=== PATIENT | female | born 1995 | race Caucasian/White ===

== ENCOUNTER 2017-08-23 15:03 | Emergency (ER) | payer OTHER ==
[~2017-08-23] VITALS: Ht 172.7 cm; Wt 105.0 kg
[2017-08-23 15:04] VITALS: BP 110/81; PULSE 82; RESP 14; TEMP 98.9; O2SAT 99
[2017-08-23] MEDS ORDERED: ADDE20XR PO (16:23)
[2017-08-23] MEDS ORDERED: ONDANSETRON ODT 4 MG TAB PO ONE (16:45)
[2017-08-23] MEDS ORDERED: KETOROLAC TROMETHAMINE 60 MG/2 ML (IM) VIAL IM ONE (16:45)
[2017-08-23] MEDS ORDERED: ZOFR4TAB3 SL (17:19)
[2017-08-23] MEDS ORDERED: AZIT250T3 PO (17:19)
[2017-08-23] MEDS ORDERED: PROM6.256 PO (17:19)
--- NOTE | 2017-08-23 17:19 | PD ---
HPI Chief Complaint: Respiratory Symptoms Time Seen by Provider: 16:36 Travel History International Travel<30 days: No Contact w/Intl Traveler<30days: No Traveled to known affect area: No History of Present Illness HPI This is a 21-year-old female who presents to the emergency department with 5 days of nonproductive cough, rhinorrhea, vomiting and loose stools, constant, moderate severity, worsening. She feels very fatigued and tired. She was seen by her [facility] earlier in the week and told she likely has bronchitis and prescribed azithromycin, prednisone and cough medicine that she didn't fill any of it. Her symptoms are not improving. PFSH Past Medical History ADHD: Yes ?: Not Past Surgical History Other Surgery: Yes Social History Alcohol Use: No Tobacco Use: No Substance Use: No Allergies-Medications (Allergen,Severity, Reaction): Coded Allergies: No Known Allergies (Unverified , 08/23/17) Reported Meds & Prescriptions Reported Meds & Active Scripts Active Reported Adderall Xr 24 HR (Amphetamine/Dextroamphetamine) 20 Mg Cap 20 Mg PO DAILY Once daily in the morning. Review of Systems Except as stated in HPI: all other systems reviewed are Neg Physical Exam Narrative GENERAL:Well appearing, no acute distress SKIN: Focused skin assessment warm and dry. HEAD: Atraumatic. Normocephalic. EYES: Pupils equal and round. No injection or drainage. ENT: Moist mucous membranes. No posterior pharyngeal erythema or exudates. NECK: Trachea midline. CARDIOVASCULAR: Regular rate and rhythm. No murmur appreciated. RESPIRATORY: Clear to auscultation. Breath sounds equal bilaterally. GASTROINTESTINAL: Abdomen soft, non-tender, nondistended. MUSCULOSKELETAL: No obvious deformities. NEUROLOGICAL: Awake and alert. No obvious cranial nerve deficits. Moving all extremities. PSYCHIATRIC: Appropriate mood and affect; insight and judgment normal. Data Data Last Documented VS Vital Signs Date Time Temp Pulse Resp B/P (MAP) Pulse Ox O2 Delivery O2 Flow Rate FiO2 08/23/17 15:04 98.9 82 14 110/81 (91) 99 Orders Orders Influenzae A/B Antigen (08/23/17 16:36) Ketorolac Inj (Toradol Inj) (08/23/17 16:45) Ondansetron Odt (Zofran Odt) (08/23/17 16:45) [facility] Medical Decision Making Medical Screen Exam Complete: Yes Emergency Medical Condition: Yes Interpretation(s) vital signs are reassuring Differential Diagnosis Influenza, bronchitis, pneumonia Narrative Course This is a 21-year-old female who presents to the emergency department with flulike symptoms that been going on for 5 days. She is nontoxic appearing on exam and has normal oxygen saturation with no evidence of pneumonia. Influenza will be obtained. If negative I think it's reasonable to discharge the patient on symptomatic management. Given her duration of symptoms azithromycin will be prescribed if influenza is negative. Diagnosis Primary Impression: Bronchitis Patient Instructions: General Instructions Additional Instructions: If you develop severe chest pain, shortness of breath, sweating, lightheadedness , dizziness or difficulty breathing return to the emergency department immediately. Followup with your primary care physician in 2-3 days if your symptoms are not resolved. Med/Other Pt SpecificInfo: Prescription(s) given Scripts Ondansetron Odt (Zofran Odt) 4 Mg Tab 4 MG SL Q6HR Y for Nausea/Vomiting, #15 TAB 0 Refills Prov: Dalila Lamas MD 08/23/17 Promethazine-Codeine Liq (Promethazine-Codeine Liq) 6.25-10 Mg/5 Ml Syrp 5 ML PO Q6H Y for COUGH AND/OR COLD SYMPTOMS, #60 ML 0 Refills Prov: Dalila Lamas MD 08/23/17 Azithromycin (Azithromycin) 250 Mg Tab 250 MG PO DIRECTED for Infection, #6 TAB 0 Refills Take 2 tabs (500 mg) on day 1 then 1 tab daily x 4 days. Prov: Dalila Lamas MD 08/23/17 Disposition: 01 DISCHARGE HOME Condition: Stable Dalila Lamas MD Aug 23, 2017 17:19
[2017-08-23] MEDS ORDERED: ALBU6.7H INH (17:56)
[2017-08-23] MEDS ORDERED: BENZ100 PO (17:56)
--- NOTE | 2017-08-23 17:57 | PD ---
Data Data Last Documented VS Vital Signs Date Time Temp Pulse Resp B/P (MAP) Pulse Ox O2 Delivery O2 Flow Rate FiO2 08/23/17 15:04 98.9 82 14 110/81 (91) 99 Orders Orders Influenzae A/B Antigen (08/23/17 16:36) Ketorolac Inj (Toradol Inj) (08/23/17 16:45) Ondansetron Odt (Zofran Odt) (08/23/17 16:45) MDM Medical Record Reviewed: Yes Supervised Visit with KELLY: No Narrative Course Influenza positive assay. The patient will be discharged with a prescription for albuterol. Symptoms are more than 5 days old and Tamiflu is unlikely to be of any benefit. Return precautions discussed as well as at home care. Please refer to Dr. Lamas's note for additional details. Diagnosis Primary Impression: Influenza Referrals: Primary Care Physician 2 days Patient Instructions: General Instructions Additional Instruction: If you develop severe chest pain, shortness of breath, sweating, lightheadedness , dizziness or difficulty breathing return to the emergency department immediately. Followup with your primary care physician in 2-3 days if your symptoms are not resolved. Scripts Benzonatate (Tessalon Perles) 100 Mg Cap 100 MG PO TID Y for COUGH, #20 CAP 0 Refills Prov: Jevon Montoya MD 08/23/17 Albuterol 6.7 GM Inh (Proventil Hfa 6.7 GM Inh) 90 Mcg/Act Aer 2 PUFF INH Q4-6H Y for COUGH, #1 INHALER 0 Refills Prov: Jevon Montoya MD 08/23/17 Ondansetron Odt (Zofran Odt) 4 Mg Tab 4 MG SL Q6HR Y for Nausea/Vomiting, #15 TAB 0 Refills Prov: Dalila Lamas MD 08/23/17 Promethazine-Codeine Liq (Promethazine-Codeine Liq) 6.25-10 Mg/5 Ml Syrp 5 ML PO Q6H Y for COUGH AND/OR COLD SYMPTOMS, #60 ML 0 Refills Prov: Dalila Lamas MD 08/23/17 Disposition: 01 DISCHARGE HOME Condition: Stable Jevon Montoya MD Aug 23, 2017 17:57
== END 2017-08-23 18:00 | disposition home or self-care (01) ==
LOC: NEPD 15:03
DX: J40 Bronchitis, not specified as acute or chronic (principal); J10.1 Influenza due to other identified influenza virus with other respiratory manifestations; F90.9 Attention-deficit hyperactivity disorder, unspecified type; Z79.899 Other long term (current) drug therapy
CPT/HCPCS: 87804; 96372; 99284; J1885